=== PATIENT | female | born 1990 | race Caucasian/White ===

== ENCOUNTER 2019-06-11 12:49 | Emergency (ER) | payer MEDICAID ==
[~2019-06-11] VITALS: Ht 157.5 cm; Wt 47.2 kg
[2019-06-11 13:01] VITALS: BP 130/75
[2019-06-11] MEDS ORDERED: ERYT1OIN6 OP (13:14)
--- NOTE | 2019-06-11 13:15 | PHYS DOC ---
Past Medical History Past Medical History: No Pertinent History Past Surgical History: No Surgical History Alcohol Use: None Drug Use: None Adult General Chief Complaint Chief Complaint: EYE PROBLEMS HPI HPI Patient is a 28 year old female that presents with left eye swelling has been ongoing for week and a half. States it is gotten worse and she's been using warm compresses at home and has been hoping it would go away but is not so far she rates her pain as 9 out of 10 in severity. Has been using naproxen at home for pain. Review of Systems Review of Systems Constitutional: Denies fever or chills [] Eyes: Reports L eye swelling and pain. HENT: Denies nasal congestion or sore throat [] Respiratory: Denies cough or shortness of breath [] Cardiovascular: No additional information not addressed in HPI [] GI: Denies abdominal pain, nausea, vomiting, bloody stools or diarrhea [] : Denies dysuria or hematuria [] Musculoskeletal: Denies back pain or joint pain [] Integument: Denies rash or skin lesions [] Neurologic: Denies headache, focal weakness or sensory changes [] Endocrine: Denies polyuria or polydipsia [] Complete systems were reviewed and found to be within normal limits, except as documented in this note. Allergies Allergies Allergies Coded Allergies Type Severity Reaction Last Updated Verified No Known Drug Allergies 06/11/19 No Physical Exam Physical Exam Constitutional: Well developed, well nourished, no acute distress, non-toxic appearance. [] HENT: Normocephalic, atraumatic, bilateral external ears normal, oropharynx moist, no oral exudates, nose normal. [] Eyes: PERRLA, EOMI, conjunctiva normal, no discharge. Has internal hordeolum to the lateral upper eyelid. Neck: Normal range of motion, no tenderness, supple, no stridor. [] Cardiovascular:Heart rate regular rhythm, no murmur [] Lungs & Thorax: Bilateral breath sounds clear to auscultation [] Abdomen: Bowel sounds normal, soft, no tenderness, no masses, no pulsatile masses. [] Skin: Warm, dry, no erythema, no rash. [] Back: No tenderness, no CVA tenderness. [] Extremities: No tenderness, no cyanosis, no clubbing, ROM intact, no edema. [] Neurologic: Alert and oriented X 3, normal motor function, normal sensory function, no focal deficits noted. [] Psychologic: Affect normal, judgement normal, mood normal. [] Current Patient Data Vital Signs Vital Signs Date Time Temp Pulse Resp B/P (MAP) Pulse Ox O2 Delivery O2 Flow Rate FiO2 06/11/19 13:01 98.4 77 16 130/75 (93) 98 Room Air 98.4 EKG EKG [] Radiology/Procedures Radiology/Procedures [] Course & Med Decision Making Course & Med Decision Making Pertinent Labs and Imaging studies reviewed. (See chart for details) Patient has issue ongoing for 1.5 weeks with no improvement. Will place on [place] thromycin ointment and have continue warm compresses at home. Dragon Disclaimer Dragon Disclaimer This electronic medical record was generated, in whole or in part, using a voice recognition dictation system. Departure Departure Impression: Primary Impression: Internal hordeolum of left eye Disposition: HOME, SELF-CARE Condition: STABLE Referrals: NO PCP (PCP) Patient Instructions: Sty Additional Instructions: Thank you for visiting [facility]. We appreciate you trusting us with your care. If any additional problems come up don't hesitate to return to visit us. Please follow up with your primary care provider so they can plan additional care if needed and know about the problem that you had. If symptoms worsen come back to the Emergency Department. Any concerning symptoms that start such as chest pain, shortness of air, weakness or numbness on one side of the body, running high fevers or any other concerning symptoms return to the ER. Please continue to use warm compresses. You have been prescribed an antibiotic today to help fight your infection. Please take all of the antibiotic as directed. If after 48 hours the infection is not improving, please return for more care. If the infection worsens, return to ER for additional care. Scripts Erythromycin Base (Erythromycin) 1 Gm Oint...g. 1 GM OP Q6HRS for 7 Days, #1 MISC 0.5 inch ribbon 4 times per day (Q6 hours). Prov: JAQUI BAILON APRN 06/11/19 Problem Qualifiers Primary Impression: Internal hordeolum of left eye Eyelid: upper Qualified Codes: H00.024 - Hordeolum internum left upper eyelid JAQUI BAILON APRN Jun 11, 2019 13:15
== END 2019-06-11 13:20 | disposition home or self-care (01) ==
LOC: ER 12:49
DX: H00.024 Hordeolum internum left upper eyelid (principal)
CPT/HCPCS: 99283

== ENCOUNTER 2019-09-08 07:29 | Emergency (ER) | payer MEDICAID ==
[~2019-09-08] VITALS: Ht 157.5 cm; Wt 49.9 kg
[~2019-09-08 07:29] MED LIST: ERYT1OIN6 OP
[2019-09-08 07:52] VITALS: BP 129/78
[2019-09-08] MEDS ORDERED: AZIT250T PO (08:09)
[2019-09-08] MEDS ORDERED: BENZ100C PO (08:09)
[2019-09-08] MEDS ORDERED: METH4TAB2 PO (08:09)
[2019-09-08] MEDS ORDERED: HYDR-3164 PO (08:09)
--- NOTE | 2019-09-08 08:09 | PHYS DOC ---
Past Medical History Past Medical History: No Pertinent History Past Surgical History: No Surgical History Additional Information: Denies smoking Alcohol Use: Occasionally Drug Use: None Adult General Chief Complaint Chief Complaint: COUGH HPI HPI Patient is a 28 year old female without history of medical problem who presents with complaint of cough. Patient complaining of nonproductive cough for one week associated with subjective fever, posttussive vomiting, sore throat, nasal congestion and myalgia. Patient states she was seen by her physician and had neg ative flu and strep test and treated with amoxicillin, albuterol inhaler and lvie-kkd-kzfdfop Mucinex without improvement of her condition. Patient states she was not able to sleep for the last 2 nights because of cough. She had sick contacts at home. Patient denies . Review of Systems Review of Systems Constitutional: Reports subjective fever Eyes: Denies change in visual acuity, redness, or eye pain [] HENT: Reports nasal congestion and sore throat Respiratory: Reports cough GI: Denies abdominal pain, bloody stools or diarrhea [] : Denies dysuria or hematuria [] Musculoskeletal: Denies back pain or joint pain [] Integument: Denies rash or skin lesions [] Neurologic: Denies headache, focal weakness or sensory changes [] Endocrine: Denies polyuria or polydipsia [] All other systems were reviewed and found to be within normal limits, except as documented in this note. Allergies Allergies Allergies Coded Allergies Type Severity Reaction Last Updated Verified No Known Drug Allergies 06/11/19 No Physical Exam Physical Exam Constitutional: Well developed, well nourished, mild distress, non-toxic appearance, afebrile. [] HENT: Normocephalic, atraumatic, bilateral external ears normal, oropharynx moist, bilateral enlarged tonsils no oral exudates, nose normal. [] Eyes: PERRLA, EOMI, conjunctiva normal, no discharge. [] Neck: Normal range of motion, no tenderness, supple, no stridor. [] Cardiovascular:Heart rate regular rhythm, no murmur [] Lungs & Thorax: Bilateral breath sounds clear to auscultation [] Abdomen: Bowel sounds normal, soft, no tenderness, no masses, no pulsatile masses. [] Skin: Warm, dry, no erythema, no rash. [] Back: No tenderness, no CVA tenderness. [] Extremities: No tenderness, no cyanosis, no clubbing, ROM intact, no edema. [] Neurologic: Alert and oriented X 3, normal motor function, normal sensory function, no focal deficits noted. [] Psychologic: Affect normal, judgement normal, mood normal. [] Current Patient Data Vital Signs Vital Signs Date Time Temp Pulse Resp B/P (MAP) Pulse Ox O2 Delivery O2 Flow Rate FiO2 09/08/19 07:52 98.1 100 16 129/78 (95) 99 Room Air 98.1 EKG EKG [] Radiology/Procedures Radiology/Procedures [] Course & Med Decision Making Course & Med Decision Making Evaluation of patient in ER showed 28-year-old female patient with cough and flulike symptoms for one week and negative flu test and strep test in another facility. Patient had unremarkable physical exam except for enlarged tonsils without exudate. Vital signs was normal. Patient was advised to continue amoxicillin and home inhaler and plan to give prescription for [place], Medrol Dosepak and Zithromax. Dragon Disclaimer Dragon Disclaimer This electronic medical record was generated, in whole or in part, using a voice recognition dictation system. Departure Departure Impression: Primary Impression: Upper respiratory infection Disposition: HOME, SELF-CARE (at 0807) Condition: STABLE Referrals: NO PCP (PCP) Patient Instructions: Cough, Adult, Upper Respiratory Infection, Adult Additional Instructions: Drink plenty of liquids Follow-up with your primary care physician in 3-5 days Return to ER if not getting better Continue home inhaler and amoxicillin Thank you for visiting [facility]. We appreciate you trusting us with your care. If any additional problems come up don't hesitate to return to visit us. Please follow up with your primary care provider so they can plan additional care if needed and know about the problem that you had. If symptoms worsen come back to the Emergency Department. Any concerning symptoms that start such as chest pain, shortness of air, weakness or numbness on one side of the body, running high fevers or any other concerning symptoms return to the ER. Scripts Azithromycin (ZITHROMAX) 250 Mg Tablet 250 MG PO as directed for ANTI-BIOTIC, #6 TAB 0 Refills Take 2 PO x 1 days Then take 1 PO q 24 hour for the next 4 days Prov: ZACH ARROYO MD 09/08/19 Benzonatate (TESSALON PERLE) 100 Mg Capsule 1 CAP PO TID for cough, #21 CAP Prov: ZACH ARROYO MD 09/08/19 Hydrocodone/Apap 5-325 (NORCO 5-325 TABLET) 1 Each Tablet 1 TAB PO PRN Q6HRS PRN for PAIN, #10 TAB 0 Refills Prov: ZACH ARROYO MD 09/08/19 Methylprednisolone (MEDROL) 4 Mg Tab.ds.pk 1 PKG PO UD for inflammation, #1 PKG Prov: ZACH ARROYO MD 09/08/19 Problem Qualifiers Primary Impression: Upper respiratory infection URI type: unspecified URI Qualified Codes: J06.9 - Acute upper respiratory infection, unspecified ZACH ARROYO MD Sep 08, 2019 08:09
== END 2019-09-08 08:21 | disposition home or self-care (01) ==
LOC: ER 07:29
DX: J06.9 Acute upper respiratory infection, unspecified (principal); R11.10 Vomiting, unspecified
CPT/HCPCS: 99283

== ENCOUNTER 2019-09-13 10:51 | Emergency (ER) | payer MEDICAID ==
[~2019-09-13] VITALS: Ht 157.5 cm; Wt 49.9 kg
[~2019-09-13 10:51] MED LIST changes: +AZIT250T PO; +BENZ100C PO; +HYDR-3164 PO; +METH4TAB2 PO
[2019-09-13 11:31] VITALS: BP 126/67
--- NOTE | 2019-09-13 11:58 | PHYS DOC ---
Past Medical History Past Medical History: No Pertinent History Past Surgical History: No Surgical History Alcohol Use: Occasionally Drug Use: None Adult General Chief Complaint Chief Complaint: SORE THROAT HPI HPI Patient is a 28 year old female who presents to the emergency department with complaints of a sore throat since yesterday. Patient states she has been taking a Z-Kaleb and finished taking it for recent upper respiratory infection. She states that this is a second antibiotic that she has taken recently. She denies any fever, rash, or body aches. She complains of bilateral ear pain for over a month. She denies any alleviating factors. Currently, she rates pain 8 out of 10 on the pain scale. All other ROS is neg unless otherwise noted in HPI. Review of Systems Review of Systems See Above Current Medications Current Medications Current Medications Medications (Trade) Dose Ordered Sig/Cristiano Start Time Stop Time Status Last Admin Dose Admin Dexamethasone Sodium Phosphate (Decadron) 10 mg 1X ONCE 09/13/19 12:00 09/13/19 12:01 DC Allergies Allergies Allergies Coded Allergies Type Severity Reaction Last Updated Verified No Known Drug Allergies 06/11/19 No See Above Physical Exam Physical Exam Constitutional: Well developed, well nourished, no acute distress, non-toxic appearance. [] HENT: Normocephalic, atraumatic, bilateral external ears normal, bilateral TMs normal, tonsils 2+ bilaterally with white exudate present, oropharynx moist, no oral exudates, nose normal. [] Eyes: PERRLA, EOMI, conjunctiva normal, no discharge. [] Neck: Normal range of motion, no tenderness, supple, no stridor. [] Cardiovascular:Heart rate regular rhythm, no murmur [] Lungs & Thorax: Bilateral breath sounds clear to auscultation, Respirations even and unlabored, no retractions, no respiratory distress[] Skin: Warm, dry, no erythema, no rash. [] Extremities: No cyanosis, no clubbing, ROM intact, no edema. [] Neurologic: Alert and oriented X 3, no focal deficits noted. [] Psychologic: Affect normal, judgement normal, mood normal. [] Current Patient Data Vital Signs Vital Signs Date Time Temp Pulse Resp B/P (MAP) Pulse Ox O2 Delivery O2 Flow Rate FiO2 09/13/19 11:31 98.1 99 16 126/67 (86) 99 Room Air 98.1 EKG EKG [] Radiology/Procedures Radiology/Procedures Rapid strep negative[] Course & Med Decision Making Course & Med Decision Making Pertinent Labs and Imaging studies reviewed. (See chart for details) Patient is a 28-year-old female who presented to the emergency department with complaints of a sore throat since yesterday. She reported that she just finished taking a Z-Kaleb or recent illness. Rapid strep test was negative. I advised the patient that this is likely a viral infection as the strep test is negative, she does not have a fever, rash, and no enlarged lymph nodes. I offered to give the patient 10 mg of Decadron to help decrease swelling and pain. Advised patient that she needs to avoid airway irritants, take Tylenol or ibuprofen as needed for pain, gargle with warm salt water as needed for relief of discomfort. And follow-up with her primary care doctor. The patient was upset and asked if I was going to prescribe an antibiotic. I told her I would not prescribe another antibiotic as this is likely viral and just needs to run its course. Patient expressed her unhappiness with my treatment and diagnosis. Verbal discharge instructions were given, however patient left prior to written discharge instructions and medication that was ordered has been given. [] Dragon Disclaimer Dragon Disclaimer This electronic medical record was generated, in whole or in part, using a voice recognition dictation system. Departure Departure Impression: Primary Impression: Pharyngitis, acute Additional Impression: URI (upper respiratory infection) Disposition: 01 HOME, SELF-CARE Condition: STABLE Referrals: NON,STAFF (PCP) Patient Instructions: Upper Respiratory Infection, Adult, [id number], Viral Pharyngitis Additional Instructions: Recommend warm salt water gargles as needed for relief of discomfort. Alternate Tylenol and ibuprofen as needed for fever/pain. Recommend use of a Cool mist humidifier in room at bedtime. Increase clear fluids. Avoid airway triggers such as smoke, fragrance, dust, and pollen. May take dioc-[id number]-[id number] cough suppressants as needed. Follow-up with your primary care doctor if symptoms persist, return to the ER if symptoms worsen. Problem Qualifiers Primary Impression: Pharyngitis, acute Pharyngitis/tonsillitis etiology: unspecified etiology Qualified Codes: J02.9 - Acute pharyngitis, unspecified Additional Impression: URI (upper respiratory infection) URI type: unspecified URI Qualified Codes: J06.9 - Acute upper respiratory infection, unspecified ROMARIO FANG SENIOR DESIGNER Sep 13, 2019 11:58
[2019-09-13] MEDS: DEXAMETHASONE SOD PHOS 20 MG/5 ML VIAL. PO ONE (12:00)
== END 2019-09-13 12:14 | disposition home or self-care (01) ==
LOC: ER 10:51
DX: J02.9 Acute pharyngitis, unspecified (principal); H92.03 Otalgia, bilateral
CPT/HCPCS: 99281